=== PATIENT | female | born 1965 | race Caucasian/White ===

== ENCOUNTER 2022-05-12 07:28 | Outpatient (CLI) | payer OTHER, SELFPAY ==
--- NOTE | ~2022-05-12 | MM_ITS ---
EXAMINATION: MM screening mauricio BI w yoselin HISTORY: Screening mammogram, family history of breast cancer in her sister. TECHNIQUE: Craniocaudal and mediolateral oblique 3-D tomosynthesis images were obtained and synthetic 2-D images were generated. CAD analysis was submitted and interpreted. COMPARISON: 03/09/2019, 03/09/2018, 03/05/2017 BREAST PARENCHYMAL COMPOSITION: The breasts are heterogeneously dense, which may obscure small masses . FINDINGS: No suspicious mass, calcification, or architectural distortion are identified in either marjorie ast to suggest malignancy. There has been no suspicious interval change. IMPRESSION: 1. No mammographic evidence of malignancy. 2. Recommend routine screening mammography in one year. BI-RADS Category 1: Negative Reviewed, dictated and finalized at location A. NOSTIC ASSISTANT
== END 2022-05-12 07:29 | disposition home or self-care (01) ==
LOC: ANHIMG 07:34
PROVIDERS: Visit Provider Obstetrics & Gynecology
DX: Z12.31 Encounter for screening mammogram for malignant neoplasm of breast (principal)
CPT/HCPCS: 77063; 77067

== ENCOUNTER 2022-08-08 07:12 | Outpatient (CLI) | payer OTHER, SELFPAY ==
[2022-08-08 08:00] LABS: Vitamin D 25 Hydroxy 44.1 ng/mL
[2022-08-08 08:24] LABS: Basophils Percent Auto 0.8 % (0.2-1.2); Eosinophils Absolute Auto 0.2 K/mm3 (0-0.3); Eosinophils Percent Auto 4.7 % (0-4.4); Hematocrit 41.1 % (37.0-47.0); Hemoglobin 13.3 g/dL (12.0-15.0); Lymphocytes Absolute Auto 1.32 K/mm3 (0.9-3.2); Lymphocytes Percent Auto 36.5 % (18.3-44.2); Mean Corpuscular HGB Conc 32.4 g/dl (32-36); Mean Corpuscular Hemoglobin 32.1 pg (26-34); Mean Corpuscular Volume 99.3 fl (80-100); Mean Platelet Volume 10.9 fl (7.4-10.4); Monocytes Absolute Auto 0.3 K/mm3 (0.1-0.6); Monocytes Percent Auto 7.5 % (2.6-8.5); Neutrophils Absolute Auto 1.8 K/mm3 (1.3-6.7); Neutrophils Percent Auto 50.5 % (45.5-73.1); Platelet Count Result 192 k/mm3 (150-375); Red Blood Count 4.14 M/mm3 (4.2-5.4); Red Cell Distribution Width 12.4 % (11.5-14.5); White Blood Count 3.6 K/mm3 (4.5-10.0)
[2022-08-08 09:04] LABS: Alanine Aminotransferase 25 U/L (6-35); Albumin Level 4.2 g/dL (3.5-5.1); Alkaline Phosphatase 85 U/L (38-126); Anion Gap 5 mmol/L (8-16); Aspartate Amino Transferase 32 U/L (14-36); Bilirubin,Total 0.7 mg/dL (0.2-1.3); Blood Urea Nitrogen 13 mg/dL (7-17); Calcium 9.5 mg/dL (8.4-10.2); Carbon Dioxide 35 mmol/L (22-30); Chloride 101 mmol/L (98-107); Cholesterol 163 mg/dL (0-200); Estimated Glomerular Filt Rate > 60; Glucose 93 mg/dL (65-110); HDL Direct 58 mg/dL; Potassium 4.2 mmol/L (3.4-5.0); Sodium 141 mmol/L (137-145); Triglycerides 83 mg/dL (<150)
[2022-08-08 09:29] LABS: LDL Cholesterol Direct 75 mg/dL
== END 2022-08-08 07:13 | disposition home or self-care (01) ==
PROVIDERS: PCP Internal Medicine; Visit Provider Internal Medicine
DX: Z00.00 Encounter for general adult medical examination without abnormal findings (principal); R79.89 Other specified abnormal findings of blood chemistry; E51.9 Thiamine deficiency, unspecified
CPT/HCPCS: 36415; 80053; 80061; 82306; 82607; 84425; 84443; 85025

== ENCOUNTER 2023-03-28 07:30 | Outpatient (CLI) | payer OTHER, SELFPAY ==
[2023-03-28 08:22] LABS: Hematocrit 43.5 % (37.0-47.0); Hemoglobin 13.9 g/dL (12.0-15.0); Mean Corpuscular Hemoglobin 31.4 pg (26-34); Mean Corpuscular Volume 98.4 fl (80-100); Mean Platelet Volume 10.5 fl (7.4-10.4); Platelet Count Result 215 k/mm3 (150-375); Red Blood Count 4.42 M/mm3 (4.2-5.4); Red Cell Distribution Width 12.4 % (11.5-14.5); White Blood Count 4.1 K/mm3 (4.5-10.0)
[2023-03-28 08:36] LABS: Alanine Aminotransferase 32 U/L (6-35); Albumin Level 4.5 g/dL (3.5-5.1); Alkaline Phosphatase 97 U/L (38-126); Anion Gap 8 mmol/L (8-16); Aspartate Amino Transferase 34 U/L (14-36); Bilirubin,Total 0.8 mg/dL (0.2-1.3); Blood Urea Nitrogen 15 mg/dL (7-17); Carbon Dioxide 30 mmol/L (22-30); Chloride 101 mmol/L (98-107); Estimated Glomerular Filt Rate > 60; Glucose 92 mg/dL (65-110); Potassium 4.3 mmol/L (3.4-5.0); Sodium 139 mmol/L (137-145)
[2023-03-28 08:43] LABS: Prealbumin 21.5 mg/dL (17.6-36.0)
[2023-03-28 08:46] LABS: Parathyroid Intact 45.4 pg/mL (7.5-53.5)
[2023-03-28 09:03] LABS: Appearance Urine Clear (Clear); Bilirubin Urine Negative (Negative); Blood Urine Negative (Negative); Color Urine Yellow (Yellow); Glucose Urine UA Negative (Negative); Ketones Urine Negative (Negative); Leukocyte Esterase Ur Negative LEU/UL (NEGATIVE); Nitrate Urine Negative (Negative); Protein Urine Negative (Negative); Specific Grav Ur 1.013 (1.001-1.035); Urobilinogen Urine 0.2 mg/dL (<2.0); pH Urine 6.5 (5.0-9.0)
[2023-03-28 09:08] LABS: Add Urine Microscopic? NO
[2023-03-28 09:11] LABS: Vitamin D 25 Hydroxy 43.9 ng/mL
[2023-03-28 09:27] LABS: Iron 81 ug/dL (37-170)
[2023-03-28 09:44] LABS: Percent Iron Saturation 22 % (20-50)
[2023-03-31 05:04] LABS: Zinc 86 mcg/dL (60-130)
[2023-03-31 11:48] LABS: Red Blood Cell Folate 583 ng/mL RBC (>280)
[2023-04-01 12:41] LABS: Alpha-Tocopherol 9.9 mg/L (5.7-19.9); Beta-Gamma Tocopherol <1.0 mg/L (<=4.3); Vitamin A 39 mcg/dL (38-98)
[2023-04-03 18:23] LABS: Vitamin K1 319 pg/mL (130-1500)
[2023-04-10 08:05] LABS: Vitamin B1 24
== END 2023-03-28 07:31 | disposition home or self-care (01) ==
PROVIDERS: PCP Internal Medicine; Referring Provider Obstetrics & Gynecology
DX: E56.9 Vitamin deficiency, unspecified (principal); E55.9 Vitamin D deficiency, unspecified; E53.9 Vitamin B deficiency, unspecified; E61.8 Deficiency of other specified nutrient elements; K90.9 Intestinal malabsorption, unspecified; Z98.84 Bariatric surgery status; Z68.30 Body mass index [BMI] 30.0-30.9, adult; E66.9 Obesity, unspecified
CPT/HCPCS: 36415; 80053; 81003; 82306; 82525; 82607; 82728; 82747; 83540; 83550; 83735; 83970; 84134; 84425; 84446; 84590; 84597; 84630; 85027

== ENCOUNTER 2023-07-21 15:48 | Outpatient (CLI) | payer OTHER, SELFPAY ==
--- NOTE | ~2023-07-21 | MM_ITS ---
EXAMINATION: MM screening mauricio BI w yoselin HISTORY: Screening mammogram TECHNIQUE: Craniocaudal and mediolateral oblique 3-D tomosynthesis images were obtained and synthetic 2-D images were generated. CAD analysis was submitted and interpreted. COMPARISON: 05/12/2022, 03/09/2019 bilateral screening mammogram examinations BREAST PARENCHYMAL COMPOSITION: The breasts are extremely dense, which lowers the sensitivity of mamm ography. FINDINGS: There is no evidence of suspicious mass, calcification, or architectural distortion to sugg est malignancy in either breast. There has been no suspicious interval change. IMPRESSION: 1. No mammographic evidence of malignancy. 2. Recommend routine screening mammography in one year. BI-RADS Category 1: Negative Reviewed, dictated and finalized at location A.
== END 2023-07-21 15:49 | disposition home or self-care (01) ==
PROVIDERS: PCP Internal Medicine; Visit Provider Obstetrics & Gynecology
DX: Z12.31 Encounter for screening mammogram for malignant neoplasm of breast (principal)
CPT/HCPCS: 77063; 77067

== ENCOUNTER 2024-07-22 06:57 | Outpatient (CLI) | payer OTHER, SELFPAY ==
--- OUTSIDE RECORDS SUMMARY | 2024-07-22 07:00 | XMS_ITS | Encounter Summary ---
Author Organization [facility] Address [address] [place] [address] Care Team Providers Care Mail Sorting Supervisor Name Role Phone Rupa Sarah MD Primary Care Provider Dahiana Rodriguez WRAPPER OFF-PLASTERING CONTRACTOR Unavailable Yuridia Goel WRAPPER OFF-PLASTERING CONTRACTOR Primary Care Provider Fredi Turner DO Primary Care Provider [phone] Encounter Details Date Type Department Care Team (Late st Contact Info) Description 01/31/2021 Telephone [facility] [address] [place] [address] Rupa Sarah MD [address] [place] [address] Social History Tobacco Use Types Packs/Day Years Used Date Smoking Tobacco: Never Smokeless Tobacco: Never Alcohol Use Standard Drinks/Week Comments Yes 0 (1 standard drink = 0.6 oz pur e alcohol) rare AUDIT-C Answer Date Recorded Q1: How often do you have a drink containing alc ohol? Monthly or less 09/12/2020 Q2: How many drinks containi ng alcohol do you have on a typical day when you are drinking? 1 or 2 09/12/2020 Q3: How often do you have si x or more drinks on one occasion? Never 09/12/2020 Education Answer Date Recorded What is the highest level of school you have completed or the highest degree you have received? 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 No 12/25/2017 Is person blind or have serious difficulty seein g? No 12/25/2017 Does person have serious dif ficulty walking/climbing stairs? Yes 12/25/2017 Does person have difficulty dressing/bathing? Ye s 12/25/2017 Does person have difficulty doing errands alone? Yes 12/25/2017 Cognitive Status Response Date of Assessm ent Does person have difficulty concentrating/remembering/making decisions? No 12/25/2017 documented as of this encounter Patient Instructions * Patient Instructions* Flakita Escalona - 01/31/2021 8:11 AM CDT This patient daughter, Clary Levine went to ER at [facility] yesterday. She thinks it is her gallbladder. Remedios loves you and gave ER doctor info. For Clary as a hopeful new patient. Can you take her daughter as new patient? If yes please advise where to put her. If no I will call Remedios back. Thank you Candace documented in this encounter Miscellaneous Notes * Telephone Encounter - Rupa Sarah MD - 01/31/2021 5:23 PM CDT I am not taking new pts ---but if daughter she can be seen in my resident's clinic and can see me with a resident. documented in this encounter Plan of Treatment Not on file documented as of this encounter Visit Diagnoses Not on filedocumented in this encounter Care Teams Mail Sorting Supervisor Relationship Specialty Start Date End Date Rupa Sarah MD PCP - General Internal Medicine 03/23/19 06/09/21 Dahiana Rodriguez, WRAPPER OFF-PLASTERING CONTRACTOR [address] [place] [address] PCP - Att[facility] 10/26/19 10/13/22 Yuridia Goel, WRAPPER OFF-PLASTERING CONTRACTOR [address] [facility] [address] [place] [id number] PCP - General 06/10/21 02/01/23 Fredi Turner DO [address] [facility] [address] [place] [id number] PCP - General Internal Medicine 02/02/23 documented as of this encounter
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
--- OUTSIDE RECORDS SUMMARY | 2024-07-22 07:00 | XMS_ITS | Encounter Summary ---
Author Organization [facility] Address [address] [place] [address] Care Team Providers Care Patch Press Operator Name Role Phone Kashmir Jacobs MD Primary Care Provider [phone] Rupa Sarah MD Primary Care Provider Kashmir Jacobs MD Primary Care Provider Rupa Sarah MD Primary Care Provider Dahiana Rodriguez FURNACE LINER-DIRECTOR MEDICAL SCIENCE Unavailable Yuridia Goel FURNACE LINER-DIRECTOR MEDICAL SCIENCE Primary Care Provider Fredi Turner DO Primary Care Provider Reason for Visit * Reason Onset Date Comments Results 11/19/2018 Encounter Details Date Type Department Care Team (Late st Contact Info) Description 11/19/2018 Telephone [facility] General Internal Medicine [address] [place] [address] Rupa Sarah MD [address] DIV [facility] [place] [address] Results Social History Tobacco Use Types Packs/Day Years Used Date Smoking Tobacco: Never Smokeless Tobacco: Never Alcohol Use Standard Drinks/Week Comments No 0 (1 standard drink = 0.6 oz pur e alcohol) Sex and Gender Information Value Date Recorded Sex Assigned at Female 12/10/2020 7:07 AM CDT Gender Identity Female 05/07/2020 9:32 AM LINE WORKER Sexual Orientation Straight 12/10/2020 7: 07 AM [...] No 12/25/2017 documented as of this encounter Miscellaneous Notes * Telephone Encounter - Rupa Sarah MD - 11/22/2018 8:17 PM CDT Email was sent to patient 11/19 * Telephone Encounter - Ceh Joshi RN - 11/19/2018 9:33 AM CDT Patient calling for CT results. Has sent emails. To Dr Sarah. [phone] until 230 and then [phone] documented in this encounter Plan of Treatment Not on file documented as of this encounter Visit Diagnoses Not on filedocumented in this encounter Additional Health Concerns Infection Onset Date Last Indicated Resolved Time COVID-19 Under Investigation 11/08/2019 11/08/2019 11/09/2019 2:18 PM CDT documented as of this encounter Care Teams Patch Press Operator Relationship Specialty Start Date End Date Kashmir Jacobs MD PCP - General 08/13/17 12/01/18 Rupa Sarah MD [address] [place] [phone] PCP - General Internal Medicine 12/02/18 03/20/19 [place] [address] [place] [phone] PCP - General 03/21/19 03/22/19 [place] [address] [place] [phone] PCP - General Internal Medicine 03/23/19 06/09/21 Dahiana Rodriguez, FURNACE LINER-DIRECTOR MEDICAL SCIENCE [address] DIV [place] [address] PCP - Attributed-[facility] 10/26/19 10/13/22 Yuridia Goel, FURNACE LINER-DIRECTOR MEDICAL SCIENCE [address] [facility] [address] [place] [phone] PCP - General 06/10/21 02/01/23 Fredi Turner DO [address] [email or web address] [address] [place] [phone] PCP - General Internal Medicine 02/02/23 documented as of this encounter
--- OUTSIDE RECORDS SUMMARY | 2024-07-22 07:00 | XMS_ITS | Encounter Summary ---
Author Organization [facility] Address [address] [facility] [facility] [place] [address] Care Team Providers Care Pile Driving Setter Name Role Phone Rupa Sarah MD Primary Care Provider Dahiana Rodriguez CARDROOM PLASTIC CARD GRADER-NETWORK TECHNOLOGY INSTRUCTOR Unavailable [phone] Yuridia Goel CARDROOM PLASTIC CARD GRADER-NETWORK TECHNOLOGY INSTRUCTOR Primary Care Provider Fredi Turner DO Primary Care Provider Encounter Details Date Type Department Care Team (Late st Contact Info) Description 05/09/2019 Telephone [facility] [address] [place] [address] Rupa Sarah MD [address] [place] [address] Social History Tobacco Use Types Packs/Day Years Used Date Smoking Tobacco: Never Smokeless Tobacco: Never Alcohol Use Standard Drinks/Week Comments No 0 (1 standard drink = 0.6 oz pur e alcohol) Sex and Gender Information Value Date Recorded Sex Assigned at Female 12/10/2020 7:07 AM CDT Gender Identity Female 05/07/2020 9:32 AM INDEPENDENT DRIVER Sexual Orientation Straight 12/10/2020 7: 07 AM [...] this encounter Patient Instructions * Patient Instructions* Yrn Mahmood - 05/09/2019 8:24 AM INDEPENDENT DRIVER Pt would like to get an appointment with Dr. Rupa Sarah today for a cold. Pt phone number is [phone]. PENDENT DRIVER documented in this encounter Plan of Treatment Not on file documented as of this encounter Visit Diagnoses Not on filedocumented in this encounter Additional Health Concerns Infection Onset Date Last Indicated Resolved Time COVID-19 Under Investigation 11/08/2019 11/08/2019 11/09/2019 2:18 PM CDT documented as of this encounter Care Teams Pile Driving Setter Relationship Specialty Start Date End Date Rupa Sarah MD PCP - General Internal Medicine 03/23/19 06/09/21 Dahiana Rodriguez, CARDROOM PLASTIC CARD GRADER-NETWORK TECHNOLOGY INSTRUCTOR [address] [facility] 2L [facility] [place] [address] PCP - Attributed-[facility] 10/26/19 10/13/22 Yuridia Goel, CARDROOM PLASTIC CARD GRADER-NETWORK TECHNOLOGY INSTRUCTOR [address] [facility] [address] [place] [phone] PCP - General 06/10/21 02/01/23 Fredi Turner DO [address] [address] PCP - General Internal Medicine 02/02/23 documented as of this encounter
--- OUTSIDE RECORDS SUMMARY | 2024-07-22 07:00 | XMS_ITS | Encounter Summary ---
Author Organization [facility] Address [address] [facility] [place] [address] Care Team Providers Care Chief Order Dispatcher Name Role Phone Rupa Sarah MD Primary Care Provider Dahiana Rodriguez REGIONAL TELECOMMUNICATIONS SPECIALIST-CHARGE ACCOUNT CLERK Unavailable [phone] Yuridia Goel REGIONAL TELECOMMUNICATIONS SPECIALIST-CHARGE ACCOUNT CLERK Primary Care Provider Fredi Turner DO Primary Care Provider [phone] Reason for Visit * Reason Onset Date Comments Injury Knee 10/04/2019 Encounter Details Date Type Department Care Team (Late st Contact Info) Description 10/04/2019 Telephone [facility] [address] [place] [address] Rupa Sarah MD [address] OF [facility] [place] [address] Injury Knee Social History Tobacco Use Types Packs/Day Years Used Date Smoking Tobacco: Never Smokeless Tobacco: Never Alcohol Use Standard Drinks/Week Comments No 0 (1 standard drink = 0.6 oz pur e alcohol) Sex and Gender Information Value Date Recorded Sex Assigned at Female 12/10/2020 7:07 AM CDT Gender Identity Female 05/07/2020 9:32 AM 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 Pt agreeable to coming tomorrow and transferred to scheduling. * Telephone Encounter - Jaden Sykes - 10/04/2019 8:12 AM CDT Current Provider name:Dr.Marilyn Sarah Reason for call: Remediosseamus Morrisn called in stating she was doingyard work about 2 weeks ago and thinks she may have sprained her knee when using a shovel. She called in asking if you needed to see her or if you will just order something for her. She does have an appointment on 11/07/2019 At 8:00, wasn't sure if you wanted to see her in sooner. She can be reached at work M-F til 2:30 Patient Call Back number: [phone] Remedios Morrisn [phone] Thank you Jaden Albrecht documented in this encounter Plan of Treatment Not on file documented as of this encounter Visit Diagnoses Not on filedocumented in this encounter Additional Health Concerns Infection Onset Date Last Indicated Resolved Time COVID-19 Under Investigation 11/08/2019 11/08/2019 11/09/2019 2:18 PM CDT documented as of this encounter Care Teams Chief Order Dispatcher Relationship Specialty Start Date End Date Rupa Sarah MD PCP - General Internal Medicine 03/23/19 06/09/21 Dahiana Rodriguez, REGIONAL TELECOMMUNICATIONS SPECIALIST-CHARGE ACCOUNT CLERK [address] OF [place] [address] PCP - Attributed-[facility] E[facility] 10/26/19 10/13/22 Yuridia Goel, REGIONAL TELECOMMUNICATIONS SPECIALIST-CHARGE ACCOUNT CLERK [address] [facility] 205 [place] [phone] PCP - General 06/10/21 02/01/23 Fredi Turner DO [address] [facility] 21 [place] [address] PCP - General Internal Medicine 02/02/23 documented as of this encounter
[2024-07-22 07:52] LABS: Eosinophils Absolute Auto 0.1 K/mm3 (0-0.3); Eosinophils Percent Auto 4.1 % (0-4.4); Hematocrit 40.2 % (37.0-47.0); Hemoglobin 13.1 g/dL (12.0-15.0); Lymphocytes Absolute Auto 1.05 K/mm3 (0.9-3.2); Lymphocytes Percent Auto 35.5 % (18.3-44.2); Mean Corpuscular HGB Conc 32.6 g/dl (32-36); Mean Corpuscular Hemoglobin 31.6 pg (26-34); Mean Corpuscular Volume 96.9 fl (80-100); Mean Platelet Volume 10.4 fl (7.4-10.4); Monocytes Absolute Auto 0.3 K/mm3 (0.1-0.6); Monocytes Percent Auto 8.8 % (2.6-8.5); Neutrophils Absolute Auto 1.5 K/mm3 (1.3-6.7); Neutrophils Percent Auto 50.6 % (45.5-73.1); Platelet Count Result 186 k/mm3 (150-375); Red Blood Count 4.15 M/mm3 (4.2-5.4); Red Cell Distribution Width 12.3 % (11.5-14.5)
[2024-07-22 08:04] LABS: Add Urine Microscopic? YES; Appearance Urine Clear (Clear); Bilirubin Urine Negative (Negative); Blood Urine Negative (Negative); Color Urine Dark Yellow (Yellow); Glucose Urine UA Negative (Negative); Ketones Urine Negative (Negative); Leukocyte Esterase Ur Negative LEU/UL (Negative); Nitrate Urine Negative (Negative); Protein Urine Negative (Negative); Specific Grav Ur 1.014 (1.001-1.035)
[2024-07-22 08:04] LABS: Alanine Aminotransferase 24 U/L (6-35); Albumin Level 4.5 g/dL (3.5-5.1); Alkaline Phosphatase 75 U/L (38-126); Anion Gap 6 mmol/L (4-12); Aspartate Amino Transferase 30 U/L (14-36); Bilirubin,Total 0.9 mg/dL (0.2-1.3); Blood Urea Nitrogen 14 mg/dL (7-17); Carbon Dioxide 32 mmol/L (22-30); Chloride 102 mmol/L (98-107); Cholesterol 175 mg/dL (0-200); Estimated Glomerular Filt Rate > 60; Glucose 87 mg/dL (65-110); HDL Direct 89 mg/dL; Potassium 4.4 mmol/L (3.4-5.0); Sodium 140 mmol/L (137-145); Triglycerides 66 mg/dL (<150)
[2024-07-22 08:15] LABS: LDL Cholesterol Direct 66 mg/dL
[2024-07-22 08:40] LABS: Vitamin D 25 Hydroxy 45.3 ng/mL
== END 2024-07-22 06:58 | disposition home or self-care (01) ==
LOC: ANHLAB 06:59
PROVIDERS: Visit Provider Internal Medicine
DX: R30.0 Dysuria (principal); Z13.29 Encounter for screening for other suspected endocrine disorder; Z00.00 Encounter for general adult medical examination without abnormal findings; Z98.84 Bariatric surgery status; E55.9 Vitamin D deficiency, unspecified; E53.8 Deficiency of other specified B group vitamins; Z13.220 Encounter for screening for lipoid disorders
CPT/HCPCS: 36415; 80053; 80061; 81001; 82306; 82607; 84443; 85025

== ENCOUNTER 2024-07-22 07:22 | Outpatient (CLI) | payer OTHER, SELFPAY ==
--- NOTE | ~2024-07-22 | MM_ITS ---
EXAMINATION: MM screening mauricio BI w yoselin HISTORY: Screening TECHNIQUE: Craniocaudal and mediolateral oblique 3-D tomosynthesis images were obtained and synthetic 2-D images were generated. CAD analysis was submitted and interpreted. COMPARISON: 07/21/2023 and dating back to 03/09/2018 BREAST PARENCHYMAL COMPOSITION: The breasts are extremely dense, which lowers the sensitivity of mamm ography. FINDINGS: Punctate calcifications detected bilaterally, vascular in origin and benign in appearance. Stable parenchymal pattern without suspicious microcalcifications, architectural distortion, discrete masses or significant asymmetry. IMPRESSION: 1. No mammographic evidence of malignancy. 2. Recommend routine screening mammography in one year. BI-RADS Category 2: Benign finding(s). Reviewed, dictated and finalized at location A.
--- OUTSIDE RECORDS SUMMARY | 2024-07-22 07:26 | XMS_ITS | Encounter Summary ---
Author Organization [facility] Address [address] [facility] [place] [address] Care Team Providers Care Lead Embedded Software Engineer Name Role Phone Rupa Sarah MD Primary Care Provider [phone] Dahiana Rodriguez DOPE WEIGH OPERATOR-PASSENGER BARGE MASTER Unavailable Yuridia Goel DOPE WEIGH OPERATOR-PASSENGER BARGE MASTER Primary Care Provider Fredi Turner DO Primary Care Provider [phone] Reason for Visit * Reason Onset Date Comments Injury Knee 10/04/2019 Encounter Details Date Type Department Care Team (Late st Contact Info) Description 10/04/2019 Telephone [facility] [address] [place] [address] Rupa Sarah MD [address] OF [facility] [place] [address] Injury Knee Social History Tobacco Use Types Packs/Day Years Used Date Smoking Tobacco: Never Smokeless Tobacco: Never Alcohol Use Standard Drinks/Week Comments No 0 (1 standard drink = 0.6 oz pur e alcohol) Sex and Gender Information Value Date Recorded Sex Assigned at Female 12/10/2020 7:07 AM CDT Gender Identity Female 05/07/2020 9:32 AM TRADE SHOW SPECIALIST Sexual Orientation Straight 12/10/2020 7: 07 AM [...] M-F til 2:30 Patient Call Back number: [phone] Remedios Morrisn [phone] Thank you Jaden Albrecht documented in this encounter Plan of Treatment Not on file documented as of this encounter Visit Diagnoses Not on filedocumented in this encounter Additional Health Concerns Infection Onset Date Last Indicated Resolved Time COVID-19 Under Investigation 11/08/2019 11/08/2019 11/09/2019 2:18 PM CDT documented as of this encounter Care Teams Lead Embedded Software Engineer Relationship Specialty Start Date End Date Rupa Sarah MD PCP - General Internal Medicine 03/23/19 06/09/21 Dahiana Rodriguez, DOPE WEIGH OPERATOR-PASSENGER BARGE MASTER [address] [place] [address] PCP - Attributed-[facility] EHP [facility] 10/26/19 10/13/22 Yuridia Goel, DOPE WEIGH OPERATOR-PASSENGER BARGE MASTER [address] [facility] 205 [place] [phone] PCP - General 06/10/21 02/01/23 Fredi Turner DO [address] [facility] 21 [place] [address] PCP - General Internal Medicine 02/02/23 documented as of this encounter
--- OUTSIDE RECORDS SUMMARY | 2024-07-22 07:26 | XMS_ITS | Encounter Summary ---
Author Organization [facility] Address [address] [facility] [place] [address] Care Team Providers Care Laboratory Geneticist Name Role Phone Kashmir Jacobs MD Primary Care Provider Rupa Sarah MD Primary Care Provider Kashmir Jacobs MD Primary Care Provider Rupa Sarah MD Primary Care Provider Dahiana Rodriguez COLOR CONTROL SUPERVISOR-DIRECTOR OF CASINO MARKETING Unavailable Yuridia Goel COLOR CONTROL SUPERVISOR-DIRECTOR OF CASINO MARKETING Primary Care Provider Fredi Turner DO Primary Care Provider Reason for Visit * Reason Onset Date Comments Results 11/19/2018 Encounter Details Date Type Department Care Team (Late st Contact Info) Description 11/19/2018 Telephone [facility] [address] [place] [address] Rupa Sarah MD [address] DIV OF [facility] [place] [address] Results Social History Tobacco Use Types Packs/Day Years Used Date Smoking Tobacco: Never Smokeless Tobacco: Never Alcohol Use Standard Drinks/Week Comments No 0 (1 standard drink = 0.6 oz pur e alcohol) Sex and Gender Information Value Date Recorded Sex Assigned at Female 12/10/2020 7:07 AM CDT Gender Identity Female 05/07/2020 9:32 AM WIRE FENCE ERECTOR Sexual Orientation Straight 12/10/2020 7: 07 AM [...] to patient 11/19 * Telephone Encounter - Che Joshi RN - 11/19/2018 9:33 AM CDT Patient calling for CT results. Has sent emails. To Dr Sarah. [phone] until 230 and then [phone] documented in this encounter Plan of Treatment Not on file documented as of this encounter Visit Diagnoses Not on filedocumented in this encounter Additional Health Concerns Infection Onset Date Last Indicated Resolved Time COVID-19 Under Investigation 11/08/2019 11/08/2019 11/09/2019 2:18 PM CDT documented as of this encounter Care Teams Laboratory Geneticist Relationship Specialty Start Date End Date Kashmir Jacobs MD PCP - General 08/13/17 12/01/18 Rupa Sarah MD [address] [place] [phone] PCP - General Internal Medicine 12/02/18 03/20/19 [place] [address] [place] [phone] PCP - General 03/21/19 03/22/19 [place] [address] [place] [phone] PCP - General Internal Medicine 03/23/19 06/09/21 Dahiana Rodriguez, COLOR CONTROL SUPERVISOR-DIRECTOR OF CASINO MARKETING [address] DIV [place] [address] PCP - Attributed-[facility] ST 10/26/19 10/13/22 Yuridia Goel, COLOR CONTROL SUPERVISOR-DIRECTOR OF CASINO MARKETING [address] [facility] 205 [place] [phone] PCP - General 06/10/21 02/01/23 Fredi Turner DO [address] [facility] 21 [place] [phone] PCP - General Internal Medicine 02/02/23 documented as of this encounter
--- OUTSIDE RECORDS SUMMARY | 2024-07-22 07:26 | XMS_ITS | Encounter Summary ---
Author Organization [facility] Address [address] [facility] [place] [address] Care Team Providers Care Bioprocess Engineer Name Role Phone Rupa Sarah MD Primary Care Provider [phone] Dahiana Rodriguez WELDER TACK-PHYSICIAN COMPENSATION ANALYST Unavailable Yuridia Goel WELDER TACK-PHYSICIAN COMPENSATION ANALYST Primary Care Provider Fredi Turner DO Primary Care Provider Encounter Details Date Type Department Care Team (Late st Contact Info) Description 05/09/2019 Telephone [facility] [address] [place] [address] Rupa Sarah MD [address] [place] [address] Social History Tobacco Use Types Packs/Day Years Used Date Smoking Tobacco: Never Smokeless Tobacco: Never Alcohol Use Standard Drinks/Week Comments No 0 (1 standard drink = 0.6 oz pur e alcohol) Sex and Gender Information Value Date Recorded Sex Assigned at Female 12/10/2020 7:07 AM CDT Gender Identity Female 05/07/2020 9:32 AM LOGISTICS RESEARCH ENGINEER Sexual Orientation Straight 12/10/2020 7: 07 AM [...] Instructions* Yrn Mahmood - 05/09/2019 8:24 AM LOGISTICS RESEARCH ENGINEER Pt would like to get an appointment with Dr. Rupa Sarah today for a cold. Pt phone number is [phone]. STICS RESEARCH ENGINEER documented in this encounter Plan of Treatment Not on file documented as of this encounter Visit Diagnoses Not on filedocumented in this encounter Additional Health Concerns Infection Onset Date Last Indicated Resolved Time COVID-19 Under Investigation 11/08/2019 11/08/2019 11/09/2019 2:18 PM CDT documented as of this encounter Care Teams Bioprocess Engineer Relationship Specialty Start Date End Date Rupa Sarah MD PCP - General Internal Medicine 03/23/19 06/09/21 Dahiana Rodriguez, WELDER TACK-PHYSICIAN COMPENSATION ANALYST [address] [facility] 2L [facility] [place] [address] PCP - Attributed-[facility] E[facility] ST 10/26/19 10/13/22 Yuridia Goel, WELDER TACK-PHYSICIAN COMPENSATION ANALYST [address] [facility] 205 [place] [phone] PCP - General 06/10/21 02/01/23 Fredi Turner DO [address] [address] PCP - General Internal Medicine 02/02/23 documented as of this encounter
--- OUTSIDE RECORDS SUMMARY | 2024-07-22 07:26 | XMS_ITS | Clinical Summary ---
Author Organization [facility] Address [address] [place] [address] Care Team Providers Care Patient Case Coordinator Name Role Phone Fredi Turner Torin DO Primary Care Provider Source Comments [facility],non-owned Affiliates and Associated Physician Practices is amultiple site organization consisting of ambulatory clinics and hospital sitesin [place], [place], [place] and [place]. This disclosure is being madepursuant to the Care Everywhere program and may not contain all information available regarding this patient. Last updated 18.[facility] Allergies Active Allergy Reactions Criticality Noted Date [...] for depression from 05/2015 - 04/2019 per CYLINDER DEVALVER Pt states meds not helpful and counseling Gastroesophageal reflux disease without esophagi tis 02/23/2020 Nasal congestion 12/02/2018 Phantosmia 12/02/2018 Multiple benign nevi of uppe r and lower extremities, and trunk 09/02/2018 Lentigines 09/02/2018 Seborrheic keratoses 09/02/2018 Bunion 11/09/2009 Resolved Problems Problem Noted Date Diagnosed Date Resolved Date Constipation 01/13/2020 02/10/2020 Seborrheic keratoses, inflamed 09/02/2018 09/12/2020 Immunizations Name Administration Dates Next Due [employer] primary monoval ent 12+ yr 0.3mL Purple [...] 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 found in [place] Brother 2 Alive Brother 3 Alive Brother [...] CDT Gender Identity Female 05/07/2020 9:32 AM SENIOR SALES MANAGER Sexual Orientation Straight 12/10/2020 7: 07 AM [...] this topic Medical Devices Implanted Type Area Gandy Dancer Device Identifier Shelf Expiration Date Model / Serial / Lot 3.4 X 3.0 X 8mm 2 Step Hammertoe Implant Implanted:Qty: 1 on 03/31/2013 by Shahriar Quintanilla DPM at [facility] Left: Toe [id number] / / 0.045 Double Ended K-Wire Implanted:Qty: 1 on 03/31/2013 by Shahriar Quintanilla DPM at [facility] Left: Toe [id number] / / Screw 2.7mm 2mm 16mm Ft Midfoot Ray Lck Implanted:Qty: 2 on 12/25/[address] [facility] Right: Foot [employer] [id number] / / Description:From sterile imp lant tray. Screw Bn 2mm 12mm Chrlt Ti Ft Hnd Snpof Implanted:Qty: 1 on 12/25/[address] [facility] Right: Foot [employer] [id number] / / Description:From sterile imp lant tray. Medium Hammertoe Implant Implanted:Qty: 1 on 12/25/[address] [facility] Right: Foot [employer] [id number] / / Description:From sterile imp lant tray. Plate Tpr Contr Lopro Ti Recon Sys Ft Rt Implanted:Qty: 1 on 12/25/[address] [facility] Right: Foot [employer] [id number] / / Description:From sterile imp lant tray. Screw 2.7mm 2mm 14mm Ft Midfoot Ray Lck Implanted:Qty: 1 on 12/25/[address] [facility] Right: Foot [employer] [id number] / / Description:From sterile imp lant tray. Screw 2.7mm 2mm 12mm Ft Midfoot Ray Lck Implanted:Qty: 1 on 12/25/[address] [facility] Right: Foot [employer] [id number] / / Description:From sterile imp lant tray. 3.5 X 28 Lag Screw Implanted:Qty: 1 on 12/25/[address] [facility] Right: Foot [id number] / / Description:From sterile imp lant tray. Explanted Type Area Gandy Dancer Device Identifier Shelf Expiration Date Model / Serial / Lot 2.5 Drill Bit Explanted:Qty: 1 on 12/25/[address] [facility] Right: Foot [id number] / / Description:From sterile imp lant tray. Wire K 1.1mm Fx Med Explanted:Qty: 1 on 12/25/[address] [facility] Right: Foot [employer] [id number] / / Description:From sterile imp lant tray. 2.45 Drill Explanted:Qty: 1 on 12/25/[address] [facility] Right: Foot [employer] [id number] / / Description:From sterile imp lant tray. Wire Fx 150mm 1.4mm Krsh Dart-Fire Explanted:Qty: 2 on 12/25/[address] [facility] Right: Foot [employer] [id number] / / Description:From sterile imp lant tray. Pin Fx 1.4mm Ortholoc 3di Sm Temp Disp Explanted:Qty: 2 on 12/25/[address] [facility] Right: Foot [employer] [id number] / / Description:From sterile imp lant tray. 2.0 Drill Bit Explanted:Qty: 1 on 12/25/[address] [facility] Right: Foot [id number] / / Description:From sterile imp lant tray. Procedures Procedure Name Priority Date/Time Associated Diagnosis Comments MAMMO BILAT SCREENING W VALERIY Routine 03/06/2021 7:03 AM SENIOR SALES MANAGER Visit for screening mammogram HEPATITIS C ANTIBODY Routine 02/07/2021 7:13 AM CDT Sleep related headaches LIPID PROFILE Routine 01/10/2020 7:12 AM CDT Cold intolerance Dyslipidemia ENDOSCOPY, COLON, SCREENING Routine 02/25/2019 7:51 AM CDT Encounter for screening colonoscopy from Last 3 Months or Most Recently Relevant to Health Maintenance Results * MAMMO BILAT SCREENING W VALERIY (03/06/2021 7:03 AM SENIOR SALES MANAGER) Anatomical Region Laterality Modality Breast Bilateral Mammography 03/06/2021 10:1 0 AM SENIOR SALES MANAGER Impressions 03/06/2021 11:22 AM SENIOR SALES MANAGER IMPRESSION: No mammographic evidence of malignancy. RECOMMENDATION: Screening mammography in one year, pending no interval breast concerns. Patient will be notified of the results by lay letter. OVERALL ASSESSMENT: BI-RADS CATEGORY 1: NEGATIVE. Report dictated by Betito Barraza DO (financial institution president) I, Dr. DONNY BARROS M.D. have personally reviewed and interpreted this examination/study. This report was electronically signed by DONNY BARROS M.D. on 03/06/2021 11:22 AM . Narrative 03/06/2021 11:22 AM SENIOR SALES MANAGER EXAMINATION: DIGITAL MAMMO BILAT SCREENING W VALERIY [...] HEPATITIS C ANTIBODY (02/07/2021 7:13 AM CDT) [facility] Hepatitis C Antibody Non-react effie Non-reac tive 02/07/2021 9:30 AM CDT [facility] Comment:Hepatitis C Antibody screen indicates no serologic [...] - CHEMISTRY ORD ERABLES Performing Organization Address City/State/[facility] Co de Phone Number [address] [phone], [facility] [phone] * (ABNORMAL) LIPID PROFILE (01/10/2020 7:12 AM CDT) Cholesterol 220(H) <200 mg/dL 01/10/2020 7:52 AM T [facility] Triglycerides 86 <150 mg/dL 01/10/2020 7:52 AM T [facility] HDL Cholesterol 68 >40 mg/dL 0 7:52 AM T [facility] LDL Calculated 135(H) <100 mg/dL 01/10/2020 7:52 AM CDT [facility] VLDL Calculated 17 12 - 38 mg/dL 01/10/2020 7:52 AM CDT [facility] Chol HDL Ratio 3.2 <=5.0 01/10/2020 7:52 AM CDT [facility] Blood BLOOD SPECIMEN / Unknown Lab Venipuncture / Unknown 01/10/2020 7:12 AM CDT 01/10/2020 7:23 AM CDT Narrative [facility] - 01/10/2020 7:52 AM CDT Lipid Profile Comment: Adult references ranges are the recommendation of the [place] [employer] , for those patients >18 [...] Sarah MD LAB - CHEMISTRY ORD ERABLES [facility] [place] [address] * ENDOSCOPY, COLON, SCREENING (02/25/2019 [...] and oxygen saturations were monitored continuously. The [id number] was introduced through the anus and advanced [...] entire procedure. Procedure Code(s): --- Professional --- 35999, Colonoscopy, flexible; with biopsy, single or multiple Diagnosis Code(s): --- Professional --- Z12.11, Encounter for screening for malignant neoplasm of colon K64.9, Unspecified hemorrhoids D12.4, Benign neoplasm of descending colon K57.30, Diverticulosis of large intestine without perforation or abscess without bleeding CPT copyright 2016 [employer]. All rights reserved. The codes documented in this report are preliminary and upon medical administrative review may be revised to meet current compliance requirements. Fermin Roman, 02/25/2019 8:50:40 AM Note Initiated On: 02/25/2019 7:51 AM Number of Addenda: 0 [facility] [address] [place] [address] [facility] 02/25/2019 7:51 AM CDT Kashmir Jacobs MD GI PROCEDURE ORDERA BLES [facility] ANUJ from Last 3 Months or Most Recently Relevant to Health Maintenance Advance Directives * Full Code (Latest Code Status on File) Date Activated Date Inactivated Comments 06/17/2021 1:15 PM 06/18/2021 5:05 PM Care Teams Patient Case Coordinator Relationship Specialty Start Date End Date Fredi Turner DO [address] [address] PCP - General Internal Medicine 02/02/23
--- OUTSIDE RECORDS SUMMARY | 2024-07-22 07:26 | XMS_ITS | Encounter Summary ---
Author Organization [facility] Address [address] [facility] [place] [address] Care Team Providers Care Assistant Professor Sculpture Name Role Phone Rupa Sarah MD Primary Care Provider Dahiana Rodriguez LIFE TRAINER-VICE PRESIDENT OF COMPLIANCE Unavailable Yuridia Goel LIFE TRAINER-VICE PRESIDENT OF COMPLIANCE Primary Care Provider Fredi Turner DO Primary Care Provider [phone] Encounter Details Date Type Department Care Team (Late st Contact Info) Description 01/31/2021 Telephone [facility] [address] [place] [address] Rupa Sarah MD [address] [place] [address] Social History Tobacco Use Types [...] CDT Gender Identity Female 05/07/2020 9:32 AM DARKROOM TECHNICIAN Sexual Orientation Straight 12/10/2020 7: 07 AM [...] daughter, Clary Levine went to ER at [facility] yesterday. She thinks it is her gallbladder. [...] on filedocumented in this encounter Care Teams Assistant Professor Sculpture Relationship Specialty Start Date End Date Rupa Sarah MD PCP - General Internal Medicine 03/23/19 06/09/21 Dahiana Rodriguez, LIFE TRAINER-VICE PRESIDENT OF COMPLIANCE [address] [place] [address] PCP - Attributed-[facility] 10/26/19 10/13/22 Yuridia Goel, LIFE TRAINER-VICE PRESIDENT OF COMPLIANCE [address] [facility] 205 [place] [phone] PCP - General 06/10/21 02/01/23 Fredi Turner DO [address] [facility] 21 [place] [phone] PCP - General Internal Medicine 02/02/23 documented as of this encounter
== END 2024-07-22 07:23 | disposition home or self-care (01) ==
LOC: ANHIMG 07:24
PROVIDERS: Visit Provider Obstetrics & Gynecology
DX: Z12.31 Encounter for screening mammogram for malignant neoplasm of breast (principal)
CPT/HCPCS: 77063; 77067

== ENCOUNTER 2024-08-01 09:56 | Outpatient (CLI) | payer OTHER, SELFPAY ==
--- NOTE | ~2024-08-01 | XR_ITS ---
XR abdomen/kub 1V Ordering provider: Conrado Pereira DO History: . SEVERE RIGHT FLANK PAIN WITH NAUSEA . Comparison: February 12, 2009 FINDINGS: BOWEL: Fecal material is loaded in the colon. Nonobstructive bowel gas pattern. ORGANOMEGALY: None. SIGNIFICANT PATHOLOGIC CALCIFICATIONS: Calcific area seen in the right kidney area which may be a sto ne or in the fecal material. OTHER: No free air is seen under the diaphragm. IMPRESSION: NO ACUTE ABDOMINAL FINDINGS. Possible right kidney stone. Noncontrast CT is better for evaluation. Constipation. Reviewed, dictated and finalized at location A.
--- OUTSIDE RECORDS SUMMARY | 2024-08-01 11:17 | XMS_ITS | Encounter Summary ---
Author Organization [facility] Address [address] [place] [address] Care Team Providers Care Roundhouse Firer/Fireman Name Role Phone Rupa Sarah MD Primary Care Provider [phone] Dahiana Rodriguez RADIO BROADCASTER-LAUNDROMAT WORKER Unavailable Yuridia Goel RADIO BROADCASTER-LAUNDROMAT WORKER Primary Care Provider Fredi Turner DO Primary Care Provider Encounter Details Date Type Department Care Team (Late st Contact Info) Description 05/09/2019 Telephone [facility] [address] [place] [address] Rupa Sarah MD [address] [place] [address] Social History Tobacco Use Types Packs/Day Years Used Date Smoking Tobacco: Never Smokeless Tobacco: Never Alcohol Use Standard Drinks/Week Comments No 0 (1 standard drink = 0.6 oz pur e alcohol) Sex and Gender Information Value Date Recorded Sex Assigned at Female 12/10/2020 7:07 AM CDT Gender Identity Female 05/07/2020 9:32 AM STAFF ATTORNEY Sexual Orientation Straight 12/10/2020 7: 07 AM [...] Instructions* Yrn Mahmood - 05/09/2019 8:24 AM STAFF ATTORNEY Pt would like to get an appointment with Dr. Rupa Sarah today for a cold. Pt phone number is [phone]. F ATTORNEY documented in this encounter Plan of Treatment Not on file documented as of this encounter Visit Diagnoses Not on filedocumented in this encounter Additional Health Concerns Infection Onset Date Last Indicated Resolved Time COVID-19 Under Investigation 11/08/2019 11/08/2019 11/09/2019 2:18 PM CDT documented as of this encounter Care Teams Roundhouse Firer/Fireman Relationship Specialty Start Date End Date Rupa Sarah MD PCP - General Internal Medicine 03/23/19 06/09/21 Dahiana Rodriguez, RADIO BROADCASTER-LAUNDROMAT WORKER [address] [facility] [address] [facility] [place] [address] PCP - Attributed-[facility] [address] 10/26/19 10/13/22 Yuridia Goel, RADIO BROADCASTER-LAUNDROMAT WORKER [address] [facility] [address] [place] [phone] PCP - General 06/10/21 02/01/23 Fredi Turner DO [address] [address] PCP - General Internal Medicine 02/02/23 documented as of this encounter
--- OUTSIDE RECORDS SUMMARY | 2024-08-01 11:17 | XMS_ITS | Encounter Summary ---
Author Organization [facility] Address [address] [place] [address] Care Team Providers Care Inpatient Auditor Name Role Phone Rupa Sarah MD Primary Care Provider Dahiana Rodriguez ASSEMBLER FLEXIBLE LEADS-TEST KITCHEN HOME ECONOMIST Unavailable Yuridia Goel ASSEMBLER FLEXIBLE LEADS-TEST KITCHEN HOME ECONOMIST Primary Care Provider Fredi Turner DO Primary Care Provider [phone] Reason for Visit * Reason Onset Date Comments Injury Knee 10/04/2019 Encounter Details Date Type Department Care Team (Late st Contact Info) Description 10/04/2019 Telephone [facility] [address] [place] [address] Rupa Sarah MD [address] OF [facility] [place] [address] Injury Knee Social History Tobacco Use Types Packs/Day Years Used Date Smoking Tobacco: Never Smokeless Tobacco: Never Alcohol Use Standard Drinks/Week Comments No 0 (1 standard drink = 0.6 oz pur e alcohol) Sex and Gender Information Value Date Recorded Sex Assigned at Female 12/10/2020 7:07 AM CDT Gender Identity Female 05/07/2020 9:32 AM MANAGER WEB APPLICATION Sexual Orientation Straight 12/10/2020 7: 07 AM [...] M-F til 2:30 Patient Call Back number: [phone] Remedios Morrisn [id number] Thank you Jaden Albrecht documented in this encounter Plan of Treatment Not on file documented as of this encounter Visit Diagnoses Not on filedocumented in this encounter Additional Health Concerns Infection Onset Date Last Indicated Resolved Time COVID-19 Under Investigation 11/08/2019 11/08/2019 11/09/2019 2:18 PM CDT documented as of this encounter Care Teams Inpatient Auditor Relationship Specialty Start Date End Date Rupa Sarah MD PCP - General Internal Medicine 03/23/19 06/09/21 Dahiana Rodriguez, ASSEMBLER FLEXIBLE LEADS-TEST KITCHEN HOME ECONOMIST [address] [place] [address] PCP - Attributed-[facility] 10/26/19 10/13/22 Yuridia Goel, ASSEMBLER FLEXIBLE LEADS-TEST KITCHEN HOME ECONOMIST [address] [facility] [address] [place] [phone] PCP - General 06/10/21 02/01/23 Fredi Turner DO [address] [facility] [address] [place] [phone] PCP - General Internal Medicine 02/02/23 documented as of this encounter
--- OUTSIDE RECORDS SUMMARY | 2024-08-01 11:17 | XMS_ITS | Clinical Summary ---
Author Organization [facility] Address [address] [place] [address] Care Team Providers Care Stem Sizer Name Role Phone Fredi Turner Torin DO Primary Care Provider Source Comments [facility],non-owned Affiliates and Associated Physician Practices is amultiple site organization consisting of ambulatory clinics and hospital sitesin [place], [place], [place] and [place]. This disclosure is being madepursuant to the Care Everywhere program and may not contain all information available regarding this patient. Last updated 18.[facility] Allergies Active Allergy Reactions Criticality Noted Date [...] for depression from 05/2015 - 04/2019 per STRUCTURAL ENGINEER Pt states meds not helpful and counseling Gastroesophageal reflux disease without esophagi tis 02/23/2020 Nasal congestion 12/02/2018 Phantosmia 12/02/2018 Multiple benign nevi of uppe r and lower extremities, and trunk 09/02/2018 Lentigines 09/02/2018 Seborrheic keratoses 09/02/2018 Bunion 11/09/2009 Resolved Problems Problem Noted Date Diagnosed Date Resolved Date Constipation 01/13/2020 02/10/2020 Seborrheic keratoses, inflamed 09/02/2018 09/12/2020 Immunizations Name Administration Dates Next Due Catch Media primary monoval ent 12+ yr 0.3mL Purple [...] 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 found in [place] Brother 2 Alive Brother 3 Alive Brother [...] CDT Gender Identity Female 05/07/2020 9:32 AM TASTE TESTER Sexual Orientation Straight 12/10/2020 7: 07 AM [...] VACCINE ( season) 2023 02/19/2021, 05/25/2020, 05/04/2020 DEPRESSION SCREENING 04/27/2024 INFLUENZA VACCINE (Season Ended) 2024 01/28/2021, 01/26/2020, 01/25/2019, Additional history exists LIPID TESTING 01/09/2025 01/10/2020, 11/25, 01/29/2017, Additional [...] this topic Medical Devices Implanted Type Area Tavern Keeper Device Identifier Shelf Expiration Date Model / Serial / Lot 3.4 X 3.0 X 8mm 2 Step Hammertoe Implant Implanted:Qty: 1 on 03/31/2013 by Shahriar Quintanilla DPM at [facility] Left: Toe [id number] / / 0.045 Double Ended K-Wire Implanted:Qty: 1 on 03/31/2013 by Shahriar Quintanilla DPM at [facility] Left: Toe [id number] / / Screw 2.7mm 2mm 16mm Ft Midfoot Ray Lck Implanted:Qty: 2 on 12/25/2017 at [facility] Right: Foot [employer] [id number] / / Description:From sterile imp lant tray. Screw Bn 2mm 12mm Chrlt Ti Ft Hnd Snpof Implanted:Qty: 1 on 12/25/2017 at [facility] Right: Foot [facility] [employer] [id number] / / Description:From sterile imp lant tray. Medium Hammertoe Implant Implanted:Qty: 1 on 12/25/2017 at [facility] Right: Foot [employer] [id number] / / Description:From sterile imp lant tray. Plate Tpr Contr Lopro Ti Recon Sys Ft Rt Implanted:Qty: 1 on 12/25/2017 at [facility] Right: Foot [employer] [id number] / / Description:From sterile imp lant tray. Screw 2.7mm 2mm 14mm Ft Midfoot Ray Lck Implanted:Qty: 1 on 12/25/2017 at [facility] Right: Foot [employer] [id number] / / Description:From sterile imp lant tray. Screw 2.7mm 2mm 12mm Ft Midfoot Ray Lck Implanted:Qty: 1 on 12/25/2017 at [facility] Right: Foot [employer] [id number] / / Description:From sterile imp lant tray. 3.5 X 28 Lag Screw Implanted:Qty: 1 on 12/25/2017 at [facility] Right: Foot [id number] / / Description:From sterile imp lant tray. Explanted Type Area Tavern Keeper Device Identifier Shelf Expiration Date Model / Serial / Lot 2.5 Drill Bit Explanted:Qty: 1 on 12/25/2017 at [facility] Right: Foot [id number] / / Description:From sterile imp lant tray. Wire K 1.1mm Fx Med Explanted:Qty: 1 on 12/25/2017 at [facility] Right: Foot [employer] [id number] / / Description:From sterile imp lant tray. 2.45 Drill Explanted:Qty: 1 on 12/25/2017 at [facility] Right: Foot [employer] [id number] / / Description:From sterile imp lant tray. Wire Fx 150mm 1.4mm Krsh Dart-Fire Explanted:Qty: 2 on 12/25/2017 at [facility] Right: Foot [employer] [id number] / / Description:From sterile imp lant tray. Pin Fx 1.4mm Ortholoc 3di Sm Temp Disp Explanted:Qty: 2 on 12/25/2017 at [facility] Right: Foot [employer] [id number] / / Description:From sterile imp lant tray. 2.0 Drill Bit Explanted:Qty: 1 on 12/25/2017 at [facility] Right: Foot [employer] [id number] / / Description:From sterile imp lant tray. Procedures Procedure Name Priority Date/Time Associated Diagnosis Comments MAMMO BILAT SCREENING W VALERIY Routine 03/06/2021 7:03 AM TASTE TESTER Visit for screening mammogram HEPATITIS C ANTIBODY Routine 02/07/2021 7:13 AM CDT Sleep related headaches LIPID PROFILE Routine 01/10/2020 7:12 AM CDT Cold intolerance Dyslipidemia ENDOSCOPY, COLON, SCREENING Routine 02/25/2019 7:51 AM CDT Encounter for screening colonoscopy from Last 3 Months or Most Recently Relevant to Health Maintenance Results * MAMMO BILAT SCREENING W VALERIY (03/06/2021 7:03 AM TASTE TESTER) Anatomical Region Laterality Modality Breast Bilateral Mammography 03/06/2021 10:1 0 AM TASTE TESTER Impressions 03/06/2021 11:22 AM TASTE TESTER IMPRESSION: No mammographic evidence of malignancy. RECOMMENDATION: Screening mammography in one year, pending no interval breast concerns. Patient will be notified of the results by lay letter. OVERALL ASSESSMENT: BI-RADS CATEGORY 1: NEGATIVE. Report dictated by Betito Barraza DO (technical operations vice president) I, Dr. DONNY BARROS M.D. have personally reviewed and interpreted this examination/study. This report was electronically signed by DONNY BARROS M.D. on 03/06/2021 11:22 AM . Narrative 03/06/2021 11:22 AM TASTE TESTER EXAMINATION: DIGITAL MAMMO BILAT SCREENING W VALERIY [...] HEPATITIS C ANTIBODY (02/07/2021 7:13 AM CDT) [facility] Hepatitis C Antibody Non-react effie Non-reac tive 02/07/2021 9:30 AM CDT [facility] Comment:Hepatitis C Antibody screen indicates no [...] - CHEMISTRY ORD ERABLES Performing Organization Address City/State/[facility] Co de Phone Number [address] [address], [facility] [phone] * (ABNORMAL) LIPID PROFILE (01/10/2020 7:12 AM CDT) Cholesterol 220(H) <200 mg/dL 01/10/2020 7:52 AM T [facility] Triglycerides 86 <150 mg/dL 01/10/2020 7:52 AM T [facility] HDL Cholesterol 68 >40 mg/dL 0 7:52 AM T [facility] LDL Calculated 135(H) <100 mg/dL 01/10/2020 7:52 AM CDT [facility] VLDL Calculated 17 12 - 38 mg/dL 01/10/2020 7:52 AM CDT [facility] Chol HDL Ratio 3.2 <=5.0 01/10/2020 7:52 AM CDT [facility] Blood BLOOD SPECIMEN / Unknown Lab Venipuncture / Unknown 01/10/2020 7:12 AM CDT 01/10/2020 7:23 AM CDT Narrative [facility] - 01/10/2020 7:52 AM CDT Lipid Profile Comment: Adult references ranges are the recommendation of the [place] [employer] , for those patients >18 [...] Sarah MD LAB - CHEMISTRY ORD ERABLES [facility] [place] [address] * ENDOSCOPY, COLON, SCREENING (02/25/2019 [...] and oxygen saturations were monitored continuously. The [id number] was introduced through the anus and advanced [...] entire procedure. Procedure Code(s): --- Professional --- 77546, Colonoscopy, flexible; with biopsy, single or multiple Diagnosis Code(s): --- Professional --- Z12.11, Encounter for screening for malignant neoplasm of colon K64.9, Unspecified hemorrhoids D12.4, Benign neoplasm of descending colon K57.30, Diverticulosis of large intestine without perforation or abscess without bleeding CPT copyright 2016 [place] [employer]. All rights reserved. The codes documented in this report are preliminary and upon research and development manager review may be revised to meet current compliance requirements. Fermin Roman, 02/25/2019 8:50:40 AM Note Initiated On: 02/25/2019 7:51 AM Number of Addenda: 0 [facility] [address] [place] [address] [facility] 02/25/2019 7:51 AM CDT Kashmir Jacobs MD GI PROCEDURE ORDERA BLES [facility] from Last 3 Months or Most Recently Relevant to Health Maintenance Advance Directives * Full Code (Latest Code Status on File) Date Activated Date Inactivated Comments 06/17/2021 1:15 PM 06/18/2021 5:05 PM Care Teams Stem Sizer Relationship Specialty Start Date End Date Fredi Turner DO [address] [address] PCP - General Internal Medicine 02/02/23
--- OUTSIDE RECORDS SUMMARY | 2024-08-01 11:17 | XMS_ITS | Encounter Summary ---
Author Organization [facility] Address [address] [facility] [place] [address] Care Team Providers Care Railroad Firer Name Role Phone Rupa Sarah MD Primary Care Provider Dahiana Rodriguez CONTRACTS SPECIALIST-DIGITAL ADVERTISING ANALYST Unavailable Yuridia Goel CONTRACTS SPECIALIST-DIGITAL ADVERTISING ANALYST Primary Care Provider Fredi Turner DO Primary Care Provider [phone] Encounter Details Date Type Department Care Team (Late st Contact Info) Description 01/31/2021 Telephone [facility] [address] [place] [address] Rupa Sarah MD [address] [place] [address] Social History Tobacco Use Types [...] CDT Gender Identity Female 05/07/2020 9:32 AM MARKET DEVELOPMENT EXECUTIVE Sexual Orientation Straight 12/10/2020 7: 07 AM [...] daughter, Clary Levine went to ER at [facility] yesterday. She thinks it is her gallbladder. [...] on filedocumented in this encounter Care Teams Railroad Firer Relationship Specialty Start Date End Date Rupa Sarah MD PCP - General Internal Medicine 03/23/19 06/09/21 Dahiana Rodriguez, CONTRACTS SPECIALIST-DIGITAL ADVERTISING ANALYST [address] OF GEN [place] [address] PCP - Attributed-[facility] 10/26/19 10/13/22 Yuridia Goel, CONTRACTS SPECIALIST-DIGITAL ADVERTISING ANALYST [address] [facility] [address] [place] [phone] PCP - General 06/10/21 02/01/23 Fredi Turner DO [address] [facility] 21 [place] [phone] PCP - General Internal Medicine 02/02/23 documented as of this encounter
--- OUTSIDE RECORDS SUMMARY | 2024-08-01 11:17 | XMS_ITS | Encounter Summary ---
Author Organization [facility] Address [address] [facility] [place] [address] Care Team Providers Care Window/Distribution Clerk Name Role Phone Kashmir Jacobs MD Primary Care Provider Rupa Sarah MD Primary Care Provider [phone] Kashmir Jacobs MD Primary Care Provider Rupa Sarah MD Primary Care Provider Dahiana Rodriguez WARDROBE SUPERVISOR-OTORHINOLARYNGOLOGIST Unavailable Yuridia Goel WARDROBE SUPERVISOR-OTORHINOLARYNGOLOGIST Primary Care Provider Fredi Turner DO Primary Care Provider Reason for Visit * Reason Onset Date Comments Results 11/19/2018 Encounter Details Date Type Department Care Team (Late st Contact Info) Description 11/19/2018 Telephone [facility] [address] [place] [address] Rupa Sarah MD [address] DIV OF [facility] [place] [address] Results Social History Tobacco Use Types Packs/Day Years Used Date Smoking Tobacco: Never Smokeless Tobacco: Never Alcohol Use Standard Drinks/Week Comments No 0 (1 standard drink = 0.6 oz pur e alcohol) Sex and Gender Information Value Date Recorded Sex Assigned at Female 12/10/2020 7:07 AM CDT Gender Identity Female 05/07/2020 9:32 AM TANK CAR RECONDITIONER Sexual Orientation Straight 12/10/2020 7: 07 AM [...] results. Has sent emails. To Dr Sarah. [phone] until 230 and then [phone] documented in this encounter Plan of Treatment Not on file documented as of this encounter Visit Diagnoses Not on filedocumented in this encounter Additional Health Concerns Infection Onset Date Last Indicated Resolved Time COVID-19 Under Investigation 11/08/2019 11/08/2019 11/09/2019 2:18 PM CDT documented as of this encounter Care Teams Window/Distribution Clerk Relationship Specialty Start Date End Date Kashmir Jacobs MD PCP - General 08/13/17 12/01/18 Rupa Sarah MD [address] [place] [phone] PCP - General Internal Medicine 12/02/18 03/20/19 [place] [address] [place] [phone] PCP - General 03/21/19 03/22/19 [place] [address] [place] [phone] PCP - General Internal Medicine 03/23/19 06/09/21 Dahiana Rodriguez, WARDROBE SUPERVISOR-OTORHINOLARYNGOLOGIST [address] DIV OF [place] [address] PCP - Attributed-[facility] [address] 10/26/19 10/13/22 Yuridia Goel, WARDROBE SUPERVISOR-OTORHINOLARYNGOLOGIST [address] [facility] [address] [place] [phone] PCP - General 06/10/21 02/01/23 Fredi Turner DO [address] [facility] 21 [place] [phone] PCP - General Internal Medicine 02/02/23 documented as of this encounter
== END 2024-08-01 09:57 | disposition home or self-care (01) ==
PROVIDERS: PCP Internal Medicine; Visit Provider Internal Medicine
DX: K59.00 Constipation, unspecified (principal); R10.9 Unspecified abdominal pain
CPT/HCPCS: 74018; 87086